=== PATIENT | male | born 1985 | race Caucasian/White ===

== ENCOUNTER → 2019-01-21 | Outpatient (REF) | payer BC | LOC: M SMT 13:42 | PROVIDERS: ATTEND Urology | DX: Z30.2 Encounter for sterilization (principal) ==

== ENCOUNTER → 2019-03-18 | Outpatient (REF) | payer BC ==
[2019-03-18 14:28] LABS: SEMEN APPEARANCE OPAQUE (OPAQUE); SEMEN VISCOSITY LIQUID (LIQUID); SEMEN VOLUME 2.2 ml (2.0-5.0); WBC CONCENTRATION <=1 M/ml (<=1 M/ml)
== END ==
LOC: M SMT 13:39
PROVIDERS: ATTEND Urology
DX: Z30.2 Encounter for sterilization (principal)

== ENCOUNTER → 2019-04-08 | Outpatient (CLI) | payer BC ==
[2019-04-08 10:35] LABS: BASO # 0.2 10^3/uL (0.0-0.2); BASO % 2.2 % (0.0-1.0); EOS # 0.9 10^3/uL (0.0-0.50); EOS % 10.3 % (0.0-3.0); HEMATOCRIT 49.7 % (42.0-52.0); HEMOGLOBIN 16.6 g/dl (13.5-17.5); LYMPH # 3.9 10^3/uL (1.5-4.5); LYMPH % 45.7 % (24.0-44.0); MEAN CORPUSCULAR HGB CONC 33.4 g/dl (32.0-36.5); MEAN CORPUSCULAR VOLUME 89.7 fl (80.0-96.0); MONO % 11.3 % (0.0-5.0); NEUTROPHILS # 2.6 10^3/uL (1.8-7.7); NEUTROPHILS % 30.3 % (36.0-66.0); PLATELET COUNT, AUTOMATED 490 10^3/uL (150-450); RED BLOOD COUNT 5.54 10^6/uL (4.30-6.10); WHITE BLOOD COUNT 8.5 10^3/uL (4.0-10.0)
[2019-04-08 11:09] LABS: ALBUMIN 3.9 GM/DL (3.2-5.2); ALT/SGPT 206 U/L (12-78); BILIRUBIN,TOTAL 0.6 MG/DL (0.2-1.0); BLOOD UREA NITROGEN 17 MG/DL (7-18); CALCIUM LEVEL 9.5 MG/DL (8.5-10.1); CARBON DIOXIDE LEVEL 29 MEQ/L (21-32); CHLORIDE LEVEL 104 MEQ/L (98-107); CHOLESTEROL LEVEL 315 MG/DL (<200); CHOLESTEROL RISK RATIO 8.513 (<5); CREATININE FOR GFR 0.97 MG/DL (0.70-1.30); FREE T4 1.18 NG/DL (0.76-1.46); GLOMERULAR FILTRATION RATE > 60.0 (>60); GLUCOSE, FASTING 96 MG/DL (70-100); HDL CHOLESTEROL 37 MG/DL (>40); LDL CHOLESTEROL 247 MG/DL (<100); NON-HDL-C 278 MG/DL; POTASSIUM SERUM 4.8 MEQ/L (3.5-5.1); SODIUM LEVEL 138 MEQ/L (136-145); TOTAL PROTEIN 7.6 GM/DL (6.4-8.2); TRIGLYCERIDES LEVEL 153 MG/DL (<150)
== END ==
LOC: M LAB 09:15
PROVIDERS: ATTEND Physician Assistant
DX: Z13.220 Encounter for screening for lipoid disorders (principal); Z13.29 Encounter for screening for other suspected endocrine disorder

== ENCOUNTER → 2019-04-14 | Outpatient (CLI) | payer BC ==
--- NOTE | 2019-04-20 00:34 | SLEEPHOME ---
DATE OF PROCEDURE: 04/14/2019 ORDERED BY: Altaf Coulter Diagnostic home sleep testing was performed due to concern for the obstructive sleep apnea syndrome. For testing a nocturnal T3 respiratory monitoring device was used. Continuous record was made of pulse, oxygen saturation, airflow, chest, abdominal strain and body position. 9 hours and 59 minutes of data were reviewed. There were 7 hours and 7 minutes marked as time in bed. During the interval marked time in bed, there were 259 respiratory events identified of 10 seconds in duration or greater for a respiratory event index of 36.4. The events were primarily obstructive. Baseline pulse rate 67, pulse rate ranged 55-93. Baseline saturation 91. Lowest oxygen saturation 82. Testing was performed in both the supine and nonsupine positions. IMPRESSION: Abnormal home sleep testing with repetitive respiratory events and oxygen desaturations to 82% with a respiratory event index of 36.4 is consistent with the obstructive sleep apnea syndrome. RECOMMENDATIONS: The patient should be encouraged to undergo a formal sleep evaluation.
== END ==
LOC: M SLEEP HO 04-13 09:31
PROVIDERS: ATTEND Physician Assistant
DX: G47.33 Obstructive sleep apnea (adult) (pediatric) (principal)

== ENCOUNTER 2020-10-12 08:04 | Emergency (ER) | payer BC, OTHER ==
[~2020-10-12] VITALS: Ht 167.6 cm; Wt 129.7 kg
--- OUTSIDE RECORDS SUMMARY | 2020-10-12 08:13 | CCD ---
Author Author [facility] Organization [facility] Address Unknown Phone Unavailable Support Name Relationship Address Phone FEDEX Next Of Kin [address] [place] [address] STATURE/ALLIED MOTION Next Of Kin [address] [place] [address] STATURE Next Of Kin [address] [place] [address] WINTER ORONA Next Of Kin [address] [place] [address] IGWT DONNA Next Of Kin [address] [place] [address] SQUAXINABBEY DEMPSEYNETH Next Of Kin [address] [place] [address] WINTER ORONA ECON [address] [place] [address] Unavailable Re-disclosure Warning The records that you are about to access may contain information from federally-assisted alcohol or drug abuse programs. If such information is present, then the following federally mandated warning applies: This information has been disclosed to you from records protected by federal confidentiality rules (42 CFR part 2). The federal rules prohibit you from making any further disclosure of this information unless further disclosure is expressly permitted by the written consent of the person to whom it pertains or as otherwise permitted by 42 CFR part 2. A general authorization for the release of medical or other information is NOT sufficient for this purpose. The Federal rules restrict any use of the information to criminally investigate or prosecute any alcohol or drug abuse patient.The records that you are about to access may contain highly sensitive health information, the redisclosure of which is protected by Article 27-F of the [facility] Public Health law. If you continue you may have access to information: Regarding HIV / AIDS; Provided by facilities licensed or operated by the [facility] Office of Mental Health; or Provided by the [facility] Office for People With Developmental Disabilities. If such information is present, then the following [facility] mandated warning applies: This information has been disclosed to you from confidential records which are protected by state law. State law prohibits you from making any further disclosure of this information without the specific written consent of the person to whom it pertains, or as otherwise permitted by law. Any unauthorized further disclosure in violation of state law may result in a fine or [place] [facility] sentence or both. A general authorization for the release of medical or other information is NOT sufficient authorization for further disc losure. Family History Family Member Name Family Member Gender Family Member Status Date o f Status Description Data Source(s) Unknown Unknown Problem [facility] ([facility] mgm Unknown Unknown Problem [facility] ([facility] Medications Medication Brand Name Start Date Product Form Dose Route Admi nistrative Instructions Pharmacy Instructions Status Indications Reaction Description Data Source(s) 2 % 02/19/2020 12:00:00 AM EDT ointment 22 APPLY THREE TIMES A DAY FOR 7 DAYS APPLY THREE TIMES A DAY FOR 7 DAYS SOLD: 02/19/2020 [facility] 300 mg 02/19/2020 12:00:00 AM EDT capsule 30 TAKE ONE CAPSULE BY MOUTH THREE TIMES A DAY WITH FOOD FOR 10 DAYS TAKE ONE CAPSULE BY MOUTH THREE TIMES A DAY WITH FOOD FOR 10 DAYS SOLD: 02/19/2020 [facility] Rosuvastatin calcium 10 MG Oral Tablet ROSUVASTATIN CALCIUM 04/15/2019 12:00:00 AM EDT tablet 30 TAKE ONE TABLET BY MOUTH AT BEDTIME TAKE ONE TABLET BY MOUTH AT BEDTIME SOLD: 02/19/2020 [facility] 20 mg 04/15/2019 12:00:00 AM EDT tablet 30 TAKE ONE TABLET BY MOUTH EVERY DAY TAKE ONE TABLET BY MOUTH EVERY DAY SOLD: 02/19/2020 [facility] 10 mg 04/15/2019 12:00:00 AM EDT tablet 30 TAKE ONE TABLET BY MOUTH AT BEDTIME TAKE ONE TABLET BY MOUTH AT BEDTIME SOLD: 08/19/2019 [facility] Insurance Providers Payer name Policy type / Coverage type Policy ID Covered alliance party ID Covered alliance party's relationship to kramer Policy Kramer Plan Information BILL PENA-BS PPO [id number] [place]2 [id number] [employer]CELLUS BC-BS PPO 306 [id number] [place]2 [id number] ANSI-Commercial [id number] ANSI-Commercial [id number] ANSI-Commercial [id number] [employer] BC-BS PPO 306 [id number] SP [id number] ANSI-Commercial [id number] BCBS/Excellus Commercial [id number] Family Dependent [id number] BCBS/[employer] Commercial [id number] Self YN [id number] Anisa Cochran Workers Compensation Self [employer] ([employer]) Fa emma Dependent Anisa Cochran Workers Compensation Self [facility] O [id number] S [id number] Workers Compensation Workers Compensation Self Workers Compensation Workers Compensation Self Workers Compensation Workers Compensation Self Lange Miguel Angel Workers Compensation Self EXCELLUS BCBS B [id number] [place] [id number] Workers Compensation Workers Compensation Self Workers Compensation Workers Compensation Self [place] PHY [id number] SP [id number] Munax WORK COMP [id number] SP [id number] Munax WORK COMP [id number] SP 0 [id number] BCBS [place] PPO 302/307 [id number] SP [id number] PROTECTIVE INSURANCE CO [id number] SP [id number] OTHER WORKERS COMPENSATION [id number] SP [id number] SELF PAY UNAVAILABLE UNAVAILA BLE Results ID Date Data Source [id number] 03/23/2020 12:00:00 AM EDT [facility] Name Value Range Interpretation Code Description Data Brenda rce(s) Supporting Document(s) SARS coronavirus 2 RNA panel N [facility] This lab was ordered by [facility] and reported by [facility]. Procedure
[2020-10-12] MEDS ORDERED: IBUP200T45 PO (08:20)
[2020-10-12] MEDS ORDERED: ROSU10TA6 (08:20)
[2020-10-12] MEDS ORDERED: LISI20TA33 (08:20)
--- OUTSIDE RECORDS SUMMARY | 2020-10-12 08:51 | CCD ---
Author Author [facility] Organization [facility] Address Unknown Phone Unavailable Support Name Relationship Address Phone EZ STAK Next Of Kin [address] [place] [address] FEDEX Next Of Kin [address] [place] [address] STATURE/ALLIED MOTION Next Of Kin [address] [place] [address] STATURE Next Of Kin [address] [place] [address] [place] Next [place] Kin [address] [place] [address] IGWT DONNA Next Of Kin [address] [place] [address] SHAVON ORONA Next Of Kin [address] [place] [address] WINTER ORONA ECON [address] [place] [address] Unavailable Re-disclosure Warning The records that you [...] is protected by Article 27-F of the [facility] Public Health law. If you continue you may have access to information: Regarding HIV / AIDS; Provided by facilities licensed or operated by the [facility] Office of Mental Health; or Provided by the [facility] Office for People With Developmental Disabilities. If such information is present, then the following [facility] mandated warning applies: This information has been [...] law may result in a fine or usp sentence or both. A general authorization for the release of medical or other information is NOT sufficient authorization for further disc losure. Family History Family Member Name Family Member Gender Family Member Status Date o f Status Description Data Source(s) Unknown Unknown Problem [facility] ([facility]) mgm Unknown Unknown Problem [facility] ([facility] [...] type / Coverage type Policy ID Covered constitution party ID Covered constitution party's relationship to ford Policy Ford Plan Information [employer] BC-BS PPO 306 [id number] [place]2 [id number] [employer] BC-BS PPO 306 [id number] [place]2 [id number] ANSI-Commercial [id number] ANSI-Commercial [id number] ANSI-Commercial [id number] [employer] BC-BS PPO 306 [id number] SP [id number] ANSI-Commercial [id number] BCBS/[employer] Commercial [id number] Family Dependent [id number] BCBS/[employer] Commercial [id number] Self YN [id number] Anisa Cochran Workers Compensation Self [employer] (H[employer]) Fa emma Dependent Anisa Cochran Workers Compensation Self [facility] O [id number] S [id number] Workers Compensation Workers Compensation Self Workers Compensation Workers Compensation Self Workers Compensation Workers Compensation Self Anisa Michelle Workers Compensation Self [employer] BCBS B [id number] S [place] [id number] Workers Compensation Workers Compensation Self Workers Compensation Workers Compensation Self [facility] PHY [id number] SP [id number] DEMARCUS WORK COMP [id number] SP [id number] [address] Accounting WORK COMP [id number] SP [id number] [place]BS [place] PPO 302/307 [id number] SP [id number] PROTECTIVE INSURANCE CO CLM#[id number] SP CLM#[id number] OTHER WORKERS COMPENSATION [id number] SP [id number] SELF PAY UNAVAILABLE UNAVAILA BLE Results ID Date Data Source [id number] 03/23/2020 12:00:00 AM EDT [facility] Name Value Range Interpretation Code Description Data Brenda rce(s) Supporting Document(s) SARS coronavirus 2 RNA panel N [facility] This lab was ordered by [facility] and reported by [facility]. Procedure
[2020-10-12 09:13] LABS: BASO # 0.2 10^3/uL (0.0-0.2); BASO % 2.1 % (0.0-1.0); EOS % 0.5 % (0.0-3.0); HEMATOCRIT 50.1 % (42.0-52.0); HEMOGLOBIN 16.3 g/dl (13.5-17.5); LYMPH # 3.4 10^3/uL (1.5-5.0); LYMPH % 39.4 % (24.0-44.0); MEAN CORPUSCULAR HEMOGLOBIN 28.7 pg (27.0-33.0); MEAN CORPUSCULAR HGB CONC 32.5 g/dl (32.0-36.5); MEAN CORPUSCULAR VOLUME 88.4 fl (80.0-96.0); MONO # 0.9 10^3/uL (0.0-0.8); MONO % 10.6 % (0.0-5.0); NEUTROPHILS % 47.2 % (36.0-66.0); PLATELET COUNT, AUTOMATED 569 10^3/uL (150-450); RED BLOOD COUNT 5.67 10^6/uL (4.30-6.10); WHITE BLOOD COUNT 8.5 10^3/uL (4.0-10.0)
--- NOTE | 2020-10-12 09:16 | REP ---
INDICATION: CHEST PAIN. COMPARISON: No comparison study. TECHNIQUE: Portable upright AP chest radiograph. FINDINGS: The lungs are well inflated and free of infiltrate. Pleural angles are sharp. Heart size is normal. Pulmonary vasculature is not increased. Monitoring electrodes are present. IMPRESSION: No active disease. <Electronically signed by Andrei Patino > 10/12/20 0980
[2020-10-12 09:23] LABS: INR 0.9; PROTHROMBIN TIME 12.3 SECONDS (12.5-14.3)
[2020-10-12 09:24] LABS: PARTIAL THROMBOPLASTIN TIME 28.6 SECONDS (24.2-38.5)
[2020-10-12 09:26] LABS: D-DIMER QUANT 350.94 ng/ml (<500)
[2020-10-12 09:27] LABS: ALBUMIN 3.7 GM/DL (3.2-5.2); ALT/SGPT 130 U/L (12-78); BILIRUBIN,DIRECT < 0.1 MG/DL (0.0-0.2); BILIRUBIN,TOTAL 0.4 MG/DL (0.2-1.0); BLOOD UREA NITROGEN 15 MG/DL (7-18); C REACTIVE PROTEIN QUANTITATIV 0.44 MG/DL (0.00-0.30); CALCIUM LEVEL 8.9 MG/DL (8.5-10.1); CARBON DIOXIDE LEVEL 26 MEQ/L (21-32); CHLORIDE LEVEL 106 MEQ/L (98-107); CK-MB VALUE MASS 3.4 NG/ML (<3.6); CPK CREATINE PHOSPHOKINASE 188 U/L (39-308); CREATININE FOR GFR 0.97 MG/DL (0.70-1.30); FREE T4 0.99 NG/DL (0.76-1.46); GLOMERULAR FILTRATION RATE > 60.0 (>60); GLUCOSE, FASTING 107 MG/DL (70-100); MB/CK RELATIVE INDEX 1.81 (< OR =4); NT-PRO BNP 5 PG/ML (<125); POTASSIUM SERUM 4.3 MEQ/L (3.5-5.1); SODIUM LEVEL 140 MEQ/L (136-145); TOTAL PROTEIN 7.4 GM/DL (6.4-8.2); TROPONIN I < 0.02 NG/ML (< 0.10)
[2020-10-12 09:35] LABS: ERYTHROCYTE SEDIMENTATION RATE 2 mm/hr (0-15)
--- NOTE | 2020-10-12 09:42 | ECGEPIP ---
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
[2020-10-12] MEDS ORDERED: KETOROLAC 30 MG/ML 1ML VIAL IV ONE (12:45)
[2020-10-12 12:53] LABS: CK-MB VALUE MASS 2.7 NG/ML (<3.6); CPK CREATINE PHOSPHOKINASE 165 U/L (39-308); MB/CK RELATIVE INDEX 1.64 (< OR =4); TROPONIN I < 0.02 NG/ML (< 0.10)
[2020-10-12] MEDS ORDERED: KETO10TAB PO (13:25)
[2020-10-12 13:30] VITALS: BP 146/60
--- NOTE | 2020-10-12 19:34 | ECGEPIP ---
[facility] - ED Test Date: 2020-10-12 Pat Name: CALVIN ORONA Department: Room: - Gender: Male Campus Recruiter: : 1985 Requested By: KEYONNA Franklin Order Number: [id number] Reading MD: Margarito Brenner Measurements Intervals [place] Rate: 67 P: 12 W[place]: 176 QRS: -7 QRSD: 117 T: 31 QT: 388 QTc: 410 Interpretive Statements SINUS RHYTHM POOR R WAVE PROGRESSION MODERATE INTRAVENTRICULAR CONDUCTION DELAY SIMILAR TO PRIOR ON SAME DATE Electronically Signed on 10-12-2020 19:34:01 EST by Margarito Brenner
== END 2020-10-12 13:42 | disposition home or self-care (01) ==
LOC: M ED 08:04
DX: R07.89 Other chest pain (principal); M54.5 Low back pain; R20.2 Paresthesia of skin; Z88.0 Allergy status to penicillin; Z79.899 Other long term (current) drug therapy
CPT/HCPCS: 36415; 71045; 80048; 80076; 82550; 82553; 83880; 84439; 84443; 84484; 85025; 85379; 85610; 85652; 85730; 86140; 93005; 93041; 94760; 96374; 99285; J1885

== ENCOUNTER → 2021-02-08 | Outpatient (CLI) | payer OTHER ==
[~2021-02-08] MED LIST: IBUP200T45 PO; KETO10TAB PO; LISI20TA33; ROSU10TA6
[2021-02-08 10:49] LABS: BASO # 0.2 10^3/uL (0.0-0.2); BASO % 2.1 % (0.0-1.0); EOS # 0.1 10^3/uL (0.0-0.5); EOS % 0.6 % (0.0-3.0); HEMATOCRIT 48.3 % (42.0-52.0); HEMOGLOBIN 15.9 g/dl (13.5-17.5); LYMPH # 4.6 10^3/uL (1.5-5.0); LYMPH % 43.8 % (24.0-44.0); MEAN CORPUSCULAR HEMOGLOBIN 29.4 pg (27.0-33.0); MEAN CORPUSCULAR HGB CONC 32.9 g/dl (32.0-36.5); MEAN CORPUSCULAR VOLUME 89.4 fl (80.0-96.0); MONO # 0.8 10^3/uL (0.0-0.8); MONO % 7.9 % (2.0-8.0); NEUTROPHILS # 4.7 10^3/uL (1.5-8.5); NEUTROPHILS % 45.4 % (36.0-66.0); PLATELET COUNT, AUTOMATED 627 10^3/uL (150-450); WHITE BLOOD COUNT 10.4 10^3/uL (4.0-10.0)
[2021-02-08 11:13] LABS: ALBUMIN 3.8 GM/DL (3.2-5.2); ALT/SGPT 68 U/L (12-78); BILIRUBIN,TOTAL 0.6 MG/DL (0.2-1.0); BLOOD UREA NITROGEN 14 MG/DL (7-18); CALCIUM LEVEL 9.2 MG/DL (8.5-10.1); CARBON DIOXIDE LEVEL 29 MEQ/L (21-32); CHLORIDE LEVEL 104 MEQ/L (98-107); CHOLESTEROL LEVEL 156 MG/DL (<200); CHOLESTEROL RISK RATIO 3.804 (<5); CREATININE FOR GFR 0.87 MG/DL (0.70-1.30); GLOMERULAR FILTRATION RATE > 60.0 (>60); GLUCOSE, FASTING 93 MG/DL (70-100); HDL CHOLESTEROL 41 MG/DL (>40); LDL CHOLESTEROL 92 MG/DL (<100); NON-HDL-C 115 MG/DL; POTASSIUM SERUM 5.1 MEQ/L (3.5-5.1); SODIUM LEVEL 138 MEQ/L (136-145); TOTAL PROTEIN 7.5 GM/DL (6.4-8.2); TRIGLYCERIDES LEVEL 113 MG/DL (<150)
[2021-02-08 11:25] LABS: MALB URINE SIEMENS 5.8 MG/L; MAU/CREAT RATIO 5.3 MCG/MG (0.0-30.0)
[2021-02-08 18:51] LABS: HEMOGLOBIN A1c 5.6 %
== END ==
LOC: M LAB 09:42
PROVIDERS: ATTEND Physician Assistant
DX: R73.03 Prediabetes (principal)

== ENCOUNTER 2022-02-19 12:42 | Emergency (ER) | payer OTHER ==
[~2022-02-19] VITALS: Ht 167.6 cm; Wt 134.8 kg
[~2022-02-19 12:42] MED LIST changes: -IBUP200T45 PO; +IBUP200T46 PO
[2022-02-19 12:43] VITALS: BP 168/92
== END 2022-02-19 15:20 | disposition home or self-care (01) ==
LOC: M ED 12:42
DX: S01.81XA Laceration without foreign body of other part of head, initial encounter (principal); W22.8XXA Striking against or struck by other objects, initial encounter; I10 Essential (primary) hypertension; Y92.9 Unspecified place or not applicable; Y93.9 Activity, unspecified; Y99.0 Civilian activity done for income or pay; Z88.0 Allergy status to penicillin; Z79.811 Long term (current) use of aromatase inhibitors; Z79.899 Other long term (current) drug therapy

== ENCOUNTER → 2023-05-16 | Outpatient (CLI) | payer OTHER ==
[2023-05-16 11:49] LABS: BASO # 0.2 10^3/uL (0.0-0.2); BASO % 2.3 % (0.0-1.0); EOS # 0.2 10^3/uL (0.0-0.5); HEMATOCRIT 47.3 % (42.0-52.0); HEMOGLOBIN 15.4 g/dl (13.5-17.5); LYMPH % 37.7 % (24.0-44.0); MEAN CORPUSCULAR HEMOGLOBIN 29.4 pg (27.0-33.0); MEAN CORPUSCULAR HGB CONC 32.6 g/dl (32.0-36.5); MEAN CORPUSCULAR VOLUME 90.3 fl (80.0-96.0); MONO # 1.1 10^3/uL (0.0-0.8); MONO % 13.9 % (2.0-8.0); NEUTROPHILS # 3.5 10^3/uL (1.5-8.5); PLATELET COUNT, AUTOMATED 585 10^3/uL (150-450); RED BLOOD COUNT 5.24 10^6/uL (4.30-6.10); WHITE BLOOD COUNT 7.9 10^3/uL (4.0-10.0)
[2023-05-16 12:14] LABS: FREE T4 1.25 NG/DL (0.89-1.76)
[2023-05-16 12:15] LABS: THYROID STIMULATING HORMONE 1.355 uIU/ML (0.55-4.78)
[2023-05-16 12:18] LABS: ALBUMIN 3.9 G/DL (3.2-5.2); ALKALINE PHOSPHATASE 65 U/L (46-116); ALT/SGPT 41 U/L (7.0-40); AST/SGOT 17 U/L (<34); BILIRUBIN,TOTAL 0.5 MG/DL (0.3-1.2); BLOOD UREA NITROGEN 16 MG/DL (9-23); CALCIUM LEVEL 9.1 MG/DL (8.5-10.1); CARBON DIOXIDE LEVEL 28 MMOL/L (20-31); CHLORIDE LEVEL 106 MMOL/L (98-107); CHOLESTEROL LEVEL 153 MG/DL (<200); CHOLESTEROL RISK RATIO 4.85 (<5); CREATININE FOR GFR 0.81 MG/DL (0.70-1.30); GLOMERULAR FILTRATION RATE > 60.0 (>60); GLUCOSE, FASTING 103 MG/DL (60-100); HDL CHOLESTEROL 31.5 MG/DL (>40); LDL CHOLESTEROL 103.3 MG/DL (<100); NON-HDL-C 121.5 MG/DL; POTASSIUM SERUM 4.9 MMOL/L (3.5-5.1); SODIUM LEVEL 138 MMOL/L (136-145); TOTAL PROTEIN 6.9 G/DL (5.7-8.2); TRIGLYCERIDES LEVEL 91 MG/DL (<150)
[2023-05-16 12:22] LABS: HEMOGLOBIN A1c 5.6 % (4.0-6.0)
== END ==
LOC: M PLALAB 07:24
PROVIDERS: ATTEND Physician Assistant
DX: R73.03 Prediabetes (principal); E78.2 Mixed hyperlipidemia; I10 Essential (primary) hypertension

== ENCOUNTER 2023-09-16 23:16 | Emergency (ER) | payer OTHER ==
[~2023-09-16] VITALS: Ht 167.6 cm; Wt 118.2 kg
[2023-09-17 02:05] LABS: APPEARANCE, URINE CLEAR (CLEAR); BACTERIA, URINE AUTO NEGATIVE (NEGATIVE); BILIRUBIN, URINE AUTO NEGATIVE (NEGATIVE); BLOOD, URINE BLOOD NEGATIVE (NEGATIVE); COLOR, URINE YELLOW (YELLOW); GLUCOSE, URINE (UA) AUTO NEGATIVE (NEGATIVE); KETONE, URINE AUTO NEGATIVE (NEGATIVE); LEUKOCYTE ESTERASE, URINE AUTO NEGATIVE (NEGATIVE); MUCUS, URINE SMALL (NEGATIVE); NITRITE, URINE AUTO NEGATIVE (NEGATIVE); PROTEIN, URINE AUTO NEGATIVE (NEGATIVE); RBC, URINE AUTO 0 /HPF (0-3); SPECIFIC GRAVITY URINE AUTO 1.027 (1.002-1.035); SQUAMOUS EPITHELIAL CELL UR AU 0 /HPF (0-6); UROBILINOGEN, URINE AUTO 0.2 mg/dL (0.0-2.0); WBC, URINE AUTO 0 /HPF (0-3)
[2023-09-17] MEDS ORDERED: LIDOCAINE 5% (LIDODERM) PATCH TD ONE (07:50)
[2023-09-17] MEDS ORDERED: KETOROLAC 60MG 2ML VIAL IM ONE (07:50)
[2023-09-17] MEDS ORDERED: diazePAM 5MG TABLET PO ONE (07:50)
[2023-09-17] MEDS ORDERED: VALI5TAB PO (07:54)
[2023-09-17] MEDS ORDERED: IBUP-1022 PO (07:54)
[2023-09-17] MEDS ORDERED: LIDO5DIS41 TOP (07:54)
[2023-09-17] MEDS ORDERED: CVS1CAP2 PO (08:05)
[2023-09-17] MEDS ORDERED: VITMTA PO (08:05)
[2023-09-17 08:12] VITALS: BP 136/73; TEMP 96; O2SAT 96
== END 2023-09-17 08:13 | disposition home or self-care (01) ==
LOC: M ED 23:16
DX: S33.5XXA Sprain of ligaments of lumbar spine, initial encounter (principal); W00.0XXA Fall on same level due to ice and snow, initial encounter; I10 Essential (primary) hypertension; E78.5 Hyperlipidemia, unspecified; Z88.0 Allergy status to penicillin; Z79.811 Long term (current) use of aromatase inhibitors; Z79.810 Long term (current) use of selective estrogen receptor modulators (SERMs); Z79.899 Other long term (current) drug therapy
CPT/HCPCS: 76775; 81001; 96372; 99283; J1885

== ENCOUNTER → 2023-10-19 | Outpatient (REF) | payer OTHER ==
[~2023-10-19] MED LIST changes: +CVS1CAP2 PO; +IBUP-1022 PO; +LIDO5DIS41 TOP; +VALI5TAB PO; +VITMTA PO
== END ==
LOC: M LAB REF 17:29
PROVIDERS: ATTEND Registered Nurse
DX: J02.9 Acute pharyngitis, unspecified (principal)

== ENCOUNTER → 2024-05-04 | Outpatient (CLI) | payer OTHER ==
[~2024-05-04] MED LIST changes: -ROSU10TA6; +ROSU10TA61
== END ==
LOC: M WUC 13:33
PROVIDERS: ATTEND Physician Assistant
DX: Q66.91 Congenital deformity of feet, unspecified, right foot (principal)

== ENCOUNTER 2025-08-29 21:31 | Emergency (ER) | payer OTHER, SELFPAY ==
[~2025-08-29] VITALS: Ht 165.1 cm; Wt 125.0 kg
[~2025-08-29 21:31] MED LIST changes: -IBUP-1022 PO; +IBUP600T42 PO; +LIDO1ADH93 TOP; -LIDO5DIS41 TOP; -ROSU10TA61; +ROSU10TA90
[2025-08-29] MEDS: NS (Normal Saline) 0.9% 1,000 ML IV ONE (23:03)
[2025-08-29] MEDS: dexAMETHasone 4 MG/ML 1 ML VIAL IV ONE (23:03)
[2025-08-29] MEDS: MAG SULF 1GM/100ML (MAG RUN) 1 GM in IV 1 EA IV ONE (23:03)
[2025-08-29] MEDS: KETOROLAC 30 MG/ML 1 ML VIAL IV ONE (23:04)
[2025-08-29] MEDS: ACETAMINOPHEN *IV* 1,000 MG in IV 1 EA IV ONE (23:04)
[2025-08-30 00:01] VITALS: TEMP 99.2
[2025-08-30 00:45] VITALS: BP 157/71
[2025-08-30 01:16] VITALS: O2SAT 98
[2025-09-03] MEDS ORDERED: DOXY-441 PO (21:25)
== END 2025-08-30 01:22 | disposition home or self-care (01) ==
LOC: M ED 21:31 → EDBD 21:31 → M ED 08-30 01:22
DX: S06.0X0A Concussion without loss of consciousness, initial encounter (principal); S70.02XA Contusion of left hip, initial encounter; M25.562 Pain in left knee; W01.198A Fall on same level from slipping, tripping and stumbling with subsequent striking against other object, initial encounter; I10 Essential (primary) hypertension; E78.5 Hyperlipidemia, unspecified; M51.369 Other intervertebral disc degeneration, lumbar region without mention of lumbar back pain or lower extremity pain; M51.35 Other intervertebral disc degeneration, thoracolumbar region; M25.78 Osteophyte, vertebrae; M50.30 Other cervical disc degeneration, unspecified cervical region; Z88.0 Allergy status to penicillin; Z88.8 Allergy status to other drugs, medicaments and biological substances; Z79.1 Long term (current) use of non-steroidal anti-inflammatories (NSAID); Z79.899 Other long term (current) drug therapy; Y92.009 Unspecified place in unspecified non-institutional (private) residence as the place of occurrence of the external cause; Y93.89 Activity, other specified; Y99.9 Unspecified external cause status
CPT/HCPCS: 70450; 72125; 72131; 73502; 73560; 96365; 96366; 96367; 96375; 99284; J0134; J1100; J1885; J2765; J3475